=== PATIENT | male | born 1995 | race African-American/Black ===

== ENCOUNTER 2018-02-19 13:46 | Emergency (ER) | payer MEDICAID ==
[2018-02-19 13:55] VITALS: BP 141/76
--- NOTE | 2018-02-19 14:14 | EDPHY ---
H & P Stated Complaint: Hit head 02/17 Time Seen by Provider: 02/19/18 14:01 HPI/ROS: CHIEF COMPLAINT: Concussion HISTORY OF PRESENT ILLNESS: The patient has a 23-year-old man who fell on Sunday night and hit his head. He was drinking and was picked up by another person then fell backwards and they both hit there heads on the grass. Patient states he was unconscious for about a minute. He did not have any seizure-like activity. He did not vomit but has felt nauseous. He has had a mild headache ever since. Yesterday he was traveling and states that he felt miserable. He has no neck pain. No weakness. No imbalance. No fever. REVIEW OF SYSTEMS: Constitutional: denies: chills, fever, recent illness, recent injury EENTM: denies: blurred vision, double vision, nose congestion Respiratory: denies: cough, shortness of breath Cardiac: denies: chest pain, irregular heart rate, lightheadedness, palpitations Gastrointestinal/Abdominal: denies: abdominal pain, diarrhea, nausea, vomiting, blood streaked stools Genitourinary: denies: dysuria, frequency, hematuria, pain Musculoskeletal: denies: joint pain, muscle pain Skin: denies: lesions, rash, jaundice, bruising Neurological: See HPI denies: numbness, paresthesia, tingling, dizziness, weakness Hematologic/Lymphatic: denies: blood clots, easy bleeding, easy bruising Immunologic/allergic: denies: HIV/AIDS, transplant EXAM: GENERAL: Well-appearing, well-nourished and in no acute distress. HEAD: Atraumatic, normocephalic. EYES: Pupils equal round and reactive to light, extraocular movements intact, sclera anicteric, conjunctiva are normal. ENT: TMs normal, nares patent, oropharynx clear without exudates. Moist mucous membranes. No nystagmus NECK: Normal range of motion, supple without lymphadenopathy or JVD. LUNGS: Breath sounds clear to auscultation bilaterally and equal. No wheezes rales or rhonchi. HEART: Regular rate and rhythm without murmurs, rubs or gallops. ABDOMEN: Soft, nontender, normoactive bowel sounds. No guarding, no rebound. No masses appreciated. BACK: No CVA tenderness, no spinal tenderness, step-offs or deformities EXTREMITIES: Normal range of motion, no pitting or edema. No clubbing or cyanosis. NEUROLOGICAL: Cranial nerves II through XII grossly intact. Normal speech, normal gait. 5/5 strength, normal movement in all extremities, normal sensation PSYCH: Normal mood, normal affect. SKIN: Warm, dry, normal turgor, no visible rashes or lesions. Source: Patient Exam Limitations: No limitations - Personal History Current Tetanus/Diphtheria Vaccine: Yes Current Tetanus Diphtheria and Acellular Pertussis (TDAP): Yes - Medical/Surgical History Hx Asthma: Yes Hx Chronic Respiratory Disease: No Hx Diabetes: No Hx Cardiac Disease: No Hx Renal Disease: No Hx Cirrhosis: No Hx Alcoholism: No Hx HIV/AIDS: No Hx Splenectomy or Spleen Trauma: No Other PMH: asthma, - Family History Significant Family History: No pertinent family hx - Social History Smoking Status: Never smoked Alcohol Use: Sober Constitutional: Initial Vital Signs Temperature (C) 36.9 C 02/19/18 13:52 Heart Rate 87 02/19/18 13:52 Respiratory Rate 16 02/19/18 13:52 Blood Pressure 141/76 H 02/19/18 13:52 O2 Sat (%) 95 02/19/18 13:52 O2 Delivery Mode Room Air Allergies/Adverse Reactions: No Known Allergies Allergy (Unverified 02/19/18 13:52) Home Medications: Medication Instructions Recorded Albuterol 02/19/18 Medical Decision Making ED Course/Re-evaluation: The patient is well appearing. He has no signs of intracranial hemorrhage. I did offer CT although I do not think it is indicated. The patient agreed to defer at this time. We discussed concussions and recovery from concussions and stepwise return to activity. He is requesting a note for school he happy with this and declines further workup or testing at this time. Differential Diagnosis: Partial list of the Differential diagnosis considered include but were not limited to; concussion, intoxication and although unlikely based on the history and physical exam, I also considered hematoma, fracture, intracranial injury, neck injury. I discussed these differential diagnoses and the plan with the patient as well as the usual and expected course. The patient understands that the diagnosis is provisional and that in medicine we are not always correct and that further workup is often warranted. Usual and customary warnings were given. All of the patient's questions were answered. The patient was instructed to return to the emergency department should the symptoms at all worsen or return, otherwise to followup with the physician as we discussed. - Data Points Medications Given: Discontinued Medications Ondansetron HCl (Zofran Odt) 4 mg PO EDNOW ONE Stop: 02/19/18 14:16 Last Admin: 02/19/18 14:17 Dose: 4 mg Departure - Departure Disposition: Home, Routine, Self-Care Clinical Impression: Concussion Qualifiers: Encounter type: initial encounter Loss of consciousness presence/duration: with LOC of 30 min or less Qualified Code(s): S06.0X1A - Concussion with loss of consciousness of 30 minutes or less, initial encounter Condition: Fair Instructions: Concussion (ED) Referrals: NONE *PRIMARY CARE P,. [Primary Care Provider] - As per Instructions Xin Huff MD [Medical Doctor] - As per Instructions Stand Alone Forms: School Excuse
[2018-02-19] MEDS ORDERED: ONDANSETRON DISINTEGRATING 4 MG TAB PO ONE (14:15)
== END 2018-02-19 14:24 | disposition home or self-care (01) ==
DX: S06.0X1A Concussion with loss of consciousness of 30 minutes or less, initial encounter (principal); J45.909 Unspecified asthma, uncomplicated; W01.198A Fall on same level from slipping, tripping and stumbling with subsequent striking against other object, initial encounter; Y99.8 Other external cause status; Y93.89 Activity, other specified